=== PATIENT | female | born 1995 | race Caucasian/White ===

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

== ENCOUNTER 2018-10-09 12:53 | Emergency (ER) | payer BC ==
[~2018-10-09] VITALS: Ht 162.6 cm; Wt 75.0 kg
[~2018-10-09 12:53] MED LIST changes: -LEVORA-28 30 MC1 TA1 PO
[2018-10-09 13:04] VITALS: BP 142/80; PULSE 110; TEMP 98.5
[2018-10-09] MEDS ORDERED: LEVORA-28 30 MC1 TA1 PO (13:29)
== END 2018-10-09 14:10 | disposition home or self-care (01) ==
LOC: COL.ER 12:53
DX: T74.21XA Adult sexual abuse, confirmed, initial encounter (principal)

== ENCOUNTER 2018-10-09 17:50 | Outpatient (CLI) | payer SELFPAY ==
[~2018-10-09 17:50] MED LIST changes: +LEVORA-28 30 MC1 TA1 PO
--- NOTE | 2018-10-09 22:15 | NUR ---
Flagyl 2 grams PO single dose order sent to [facility] in [place], [place]. Pt instructed on alcohol consumption with abx use. Denied questions or concerns.
== END 2018-10-09 22:15 | disposition home or self-care (01) ==
LOC: LDRO 17:50 → LDR 18:10 → LDRO 22:15
DX: Z04.41 Encounter for examination and observation following alleged adult rape (principal)
CPT/HCPCS: OP; J0696

== ENCOUNTER → 2018-10-09 | Outpatient (REF) ==
[~2018-10-09] MED LIST changes: +LEVORA-28 30 MC1 TA1 PO
== END ==
LOC: COL.ER 13:03
DX: T74.21XA Adult sexual abuse, confirmed, initial encounter (principal)

== ENCOUNTER 2020-12-05 10:51 | Inpatient (IN) | payer BC, OTHER ==
[~2020-12-05] VITALS: Ht 165.1 cm; Wt 94.1 kg
[2020-12-05] VITALS (35 sets, daily range): BP systolic 86–141; BP diastolic 47–755; PULSE 83–121; TEMP 97.8–99.1
--- NOTE | 2020-12-05 10:56 | NUR ---
Pt arrives ambulatory with this RN and mother. States feeling a "pop" while bending over to clean at 0937. Sat on the toilet after, and felt fluid continuing to leak out that was not urine. Scant bloody show. Irregular ctx, and reports GFM. Changed into a clean gown.
[2020-12-05] MEDS ORDERED: PRENATAL MVI (11:08)
[2020-12-05 11:32] LABS: MEAN CELL VOLUME 88 fl (80.0-100.0); MEAN CORPUSCULAR HEMOGLOBIN 29 pg (27.0-31.0); MEAN CORPUSCULAR HGB CONC 33 g/dl (33.0-37.0); MEAN PLATELET VOLUME 10.1 fl (7.4-10.4); PLATELET COUNT 281 K/mm3 (130-400); RED BLOOD COUNT 4.14 M/mm3 (4.10-5.30); REDCELL DISTRIBUTION WIDTH-CV 13.4 % (11.5-14.5)
[2020-12-05 11:39] LABS: HEMATOCRIT 36.3 % (37.0-47.0)
[2020-12-05 12:16] LABS: ANISOCYTOSIS 1+; BAND 4 % (0-10); LYMPHOCYTE 10 % (20.0-51.0); METAMYELOCYTE 1 % (0-0); MICROCYTOSIS 1+; MYELOCYTE 1 % (0-0); NEUTROPHILS 78 % (42.0-75.2); PLATELET ESTIMATE NORMAL (NORMAL)
--- NOTE | 2020-12-05 13:28 | NUR ---
1328- Prolonged FHR decel lasting 2.5min. Right lateral. LR bolus. 1332- Prolonged FHR decel lasting 4min. Left lateral. LR bolus. FSE placed. SVE 8/90/0. Patient wedge right. FHR baseline [address] Sanz updated. See physician notification. 1359- Prolonged FHR decel to 80bmp. Patient Left lateral. LR bolus. 1400- FHR continues 80bmp. Patient right lateral. LR bolus continues. 1402- Patient to hands and knees position. O2 on via simple mask. LR bolus continues. 1406- Dr. Sanz updated on pt. See physician notification. Patient and family updated on plan of care. RN remains at bedside. 1410- FHR 120bmp. RN remains at bedside. 1414- Dr. Sanz at bedside. SVE 9.5cm. Patient wedge right. 1415- Dr. Sanz remains on unit. 1417- Prolonged FHR decel to 70bpm. Patient right and left lateral. LR bolus and O2 at 10L via simple mask. 1421- SVE per Dr. Sanz 10cm. Patient repositioned in footplates and instructed on pushing with contractions. 1429- Patient continues to push with contractions with Dr. Sanz at bedside. Strong maternal effort. Moves vertex well. FHR noted to be 80-90's between ctx. Dr. Sanz consents pt for VAVD. Patient agrees. 1432- Vacuum applied to occiput by Dr. Sanz. Traction applied to occiput by Dr. Sanz as patient continues to push with ctx. Small crown noted. 1434- VAVD of viable female . Nuchal cord x1 reduced on perineum. Cord clamped x2 and cut. To mother's chest where dried and stimulated by nursery RN. Care of assumed by Gloria Ramsey RN. 1438- Spontaneous and intact delivery of placenta. Pitocin to 333ml/hr per protocol. Second degree perineal laceration and left labial laceration repaired by Dr. Sanz. 1445- Fundus firm, midline, and bleeding minimal. Do care provided, pads changed, ice pack to perineum, and pt repositioned in bed. Plan of care and safety precautions reviewed with patient and family who verbalize understanding. Resting with call light within reach.
--- NOTE | 2020-12-05 16:20 | NUR ---
Patient reports increased rectal and vaginal pain. Perineum examined by this RN. No s/s of hematoma.
--- NOTE | 2020-12-05 16:35 | NUR ---
Patient c/o increased rectal/vaginal pain and pressure. Vaginal exam by this RN. Large solid mass to right vaginal wall palpated. Dr. Sanz notified. See physician notification.
--- NOTE | 2020-12-05 16:53 | NUR ---
Roles at patient bedside to evaluate.
--- NOTE | 2020-12-05 17:02 | NUR ---
Epidural dosed by Suri Muniz CRNA. See anesthsia record.
--- NOTE | 2020-12-05 17:30 | NUR ---
Patient to OR via bed.
[2020-12-05 18:35] LABS: MEAN CELL VOLUME 89 fl (80.0-100.0); MEAN CORPUSCULAR HGB CONC 33 g/dl (33.0-37.0); MEAN PLATELET VOLUME 10.1 fl (7.4-10.4); PLATELET COUNT 252 K/mm3 (130-400); RED BLOOD COUNT 3.28 M/mm3 (4.10-5.30); REDCELL DISTRIBUTION WIDTH-CV 13.3 % (11.5-14.5)
[2020-12-05 18:37] LABS: INR 1.1 (0.8-3.0); PROTHROMBIN TIME 11.9 SECONDS (9.7-12.8)
[2020-12-05 18:40] LABS: PARTIAL THROMBOPLASTIN TIME 27.2 SECONDS (26.0-37.0)
[2020-12-05 18:41] LABS: HEMATOCRIT 29.2 % (37.0-47.0); HEMOGLOBIN 9.5 g/dl (12.5-16.0); MEAN CORPUSCULAR HEMOGLOBIN 29 pg (27.0-31.0)
[2020-12-05 18:57] LABS: BAND 2 % (0-10); HYPOCHROMIA 1+; LYMPHOCYTE 9 % (20.0-51.0); NEUTROPHILS 82 % (42.0-75.2); PLATELET ESTIMATE NORMAL (NORMAL)
[2020-12-06] VITALS: BP 102/51; PULSE 84
[2020-12-06 04:00] VITALS: BP 106/62; PULSE 100; TEMP 98.7
[2020-12-06 06:44] VITALS: BP 95/65; PULSE 93; TEMP 98.3
--- NOTE | 2020-12-06 08:53 | NUR ---
Pt requesting shower later today after voiding complete.
--- NOTE | 2020-12-06 09:40 | NUR ---
Initial visit attempt; Nurse with patient, [employer] left card of congratulations and God's blessings for the of their daughter and information regarding the availability of spiritual care at [facility].
[2020-12-06 12:34] VITALS: BP 114/78; PULSE 98; TEMP 98.3
[2020-12-06 16:03] VITALS: BP 111/69; PULSE 97; TEMP 98.4
[2020-12-06 20:30] VITALS: BP 94/56; PULSE 97; TEMP 98.4
[2020-12-07 08:15] VITALS: BP 108/69; PULSE 93; TEMP 98.3
[2020-12-07] MEDS ORDERED: MOTRIN 800800 MG/TAB PO (09:23)
[2020-12-07] MEDS ORDERED: ROXICODONE 55 MG/TAB PO (09:24)
--- NOTE | 2020-12-07 12:14 | NUR ---
REVIEW DISCHARGE INSTRUCTIONS, DENIES NEEDS OR QUESTIONS, PT DISCHARGED AMBULATORY WITH HER MOM AND . ACCOMPANIED BY UNIT NURSE TO CAR.
== END 2020-12-07 12:10 | disposition home or self-care (01) | DRG 768 ==
LOC: LDRO 10:51 → LDR 10:56 → OB 10:56
PROVIDERS: Obstetrics & Gynecology; ADMIT Obstetrics & Gynecology
PROC: 10D07Z6 Extraction of Products of Conception, Vacuum, Via Natural or Artificial Opening (ICD-10-PCS; principal; 2020-12-05)
PROC: 0UCG7ZZ Extirpation of Matter from Vagina, Via Natural or Artificial Opening (ICD-10-PCS; 2020-12-05)
PROC: 0UQG0ZZ Repair Vagina, Open Approach (ICD-10-PCS; 2020-12-05)
DX: O77.0 Labor and delivery complicated by meconium in amniotic fluid (principal); Z37.0 Single live birth; O98.32 Other infections with a predominantly sexual mode of transmission complicating childbirth; O71.7 Obstetric hematoma of pelvis; A60.09 Herpesviral infection of other urogenital tract; O70.1 Second degree perineal laceration during delivery; O76 Abnormality in fetal heart rate and rhythm complicating labor and delivery; O99.343 Other mental disorders complicating pregnancy, third trimester; F32.A Depression, unspecified; Z3A.39 39 weeks gestation of pregnancy
CPT/HCPCS: J2400; J2590; J7120